=== PATIENT | female | born 1980 | race Caucasian/White ===

== ENCOUNTER 2016-12-24 12:15 | Emergency (ER) | payer SELFPAY ==
[~2016-12-24] VITALS: Ht 157.5 cm; Wt 99.8 kg
[~2016-12-24 12:15] MED LIST: PRED-220 PO
[2016-12-24] MEDS ORDERED: PRED50TA PO (12:38)
[2016-12-24] MEDS ORDERED: FAMO-63 PO (12:38)
--- NOTE | 2016-12-24 12:38 | PHYS DOC ---
Past History Past Medical History: Other Past Surgical History: Cholecystectomy Alcohol Use: None Drug Use: None Adult General Chief Complaint Chief Complaint: FACE PROBLEM HPI HPI Patient is a 36 year old female who presents with lip swelling. The patient states this morning she woke up and noted mild swelling of her lower lip. She denies any tongue swelling, difficulty breathing, vomiting, diarrhea. Denies rash or itching. She states the swelling has not worsened since she first noticed it. She took Benadryl at home without any significant change in her symptoms. Denies use of medications, no new ingestions of foods. Denies exposure to new soap/lotion/detergent. Reports history of previous similar reaction which she attributes to exposure to shampoo. She states she has previously been told that her blood pressure is high but she is not on medication. Today denies headache, vision changes, chest pain, shortness of breath, extremity numbness or weakness. Does not have a primary care physician. Review of Systems Review of Systems Constitutional: Denies fever or chills Eyes: Denies change in visual acuity HENT: Denies nasal congestion or sore throat , reports lip swelling Respiratory: Denies cough or shortness of breath Cardiovascular: Denies chest pain GI: Denies abdominal pain, nausea, vomiting, or diarrhea Musculoskeletal: Denies back pain or joint pain Integument: Denies rash or skin lesions Neurologic: Denies headache Allergies Allergies Allergies Coded Allergies Type Severity Reaction Last Updated Verified Penicillins Allergy Intermediate 09/06/16 Yes Tetanus Vaccines and Toxoid Allergy Intermediate Hives 03/01/15 No Physical Exam Physical Exam Constitutional: obese, no acute distress, non-toxic appearance. HENT: Normocephalic, atraumatic, bilateral external ears normal, oropharynx moist, nose normal. very mild swelling of the lower lip, no tongue or face swelling. Eyes: conjunctiva normal, no discharge. Neck: supple, no stridor. Cardiovascular: RRR, no murmurs, no edema. Lungs & Thorax: LCTAB, no wheezing, no respiratory distress. Abdomen: soft, nontender, nondistended. Skin: Warm, dry, no erythema, no rash. Back: No tenderness. Extremities: No tenderness, no edema. Neurologic: Alert and oriented X 3, no focal deficits noted. Psychologic: Affect normal, judgement normal, mood normal. Current Patient Data Vital Signs Vital Signs Date Time Temp Pulse Resp B/P (MAP) Pulse Ox O2 Delivery O2 Flow Rate FiO2 12/24/16 12:22 98.2 94 18 96 Room Air EKG EKG [] Radiology/Procedures Radiology/Procedures [] Course & Med Decision Making Course & Med Decision Making Pertinent Labs and Imaging studies reviewed. (See chart for details) Patient presents with presumed allergic reaction with very mild lip swelling. Reaction is localized, no progression since she woke up several hours ago, no distress, no intra-oral involvement. She already took Benadryl. Gave prednisone and Pepcid here. Symptoms extremely mild, did not administer epinephrine here. I did discuss somewhat extensively with the patient. If any progression such as worsening lip swelling or any tongue swelling or throat tightness, I would recommend use of epinephrine. Gave prescriptions for prednisone and Pepcid to continue for 4 days, recommend continue Benadryl every 6 hours while swelling persists. Offered EpiPen which she declines. Return to the emergency department for any worsening swelling, shortness of breath, any otherwise worsening condition. Provided clinic referral sheet and instructed her to follow-up with a primary care doctor in about one week for blood pressure recheck and possible allergy testing. She is discharged home in stable condition. [] Dragon Disclaimer Dragon Disclaimer This chart was dictated in whole or in part using Voice Recognition software in a busy, high-work load, and often noisy Emergency Department environment. It may contain unintended and wholly unrecognized errors or omissions. Departure Departure: Impression: Primary Impression: Allergic reaction Additional Impression: Hypertension Disposition: 01 HOME, SELF-CARE Condition: STABLE Referrals: PCP,NO (PCP) Patient Instructions: Allergies, Generic Additional Instructions: You were seen in the emergency department today for presumed allergic reaction. Please continue to take benadryl 25 mg every 6 hours for itching or swelling. Take pepcid & prednisone daily for 4 days. Follow up with primary care physician for elevated blood pressure & possible allergy testing. Come back for worsening lip swelling, severe tongue swelling, difficulty breathing, any otherwise worsening condition. Scripts Famotidine (PEPCID) 20 Mg Tablet 20 MG PO DAILY for 4 Days, #4 TAB Prov: KALEIGH BENNETT MD 12/24/16 Prednisone (PREDNISONE) 50 Mg Tablet 1 TAB PO DAILY, #4 TAB Prov: KALEIGH BENNETT MD 12/24/16 Problem Qualifiers KALEIGH BENNETT MD Dec 24, 2016 12:38
[2016-12-24 12:42] VITALS: BP 168/121
[2016-12-24] MEDS ORDERED: FAMOTIDINE 20 MG TABLET PO ONE (12:45)
[2016-12-24] MEDS ORDERED: predniSONE 10 MG TABLET PO ONE (12:45)
== END 2016-12-24 12:43 | disposition home or self-care (01) ==
LOC: ER 12:15
DX: T78.40XA Allergy, unspecified, initial encounter (principal); I10 Essential (primary) hypertension; Z88.0 Allergy status to penicillin; Z88.7 Allergy status to serum and vaccine; X58.XXXA Exposure to other specified factors, initial encounter
CPT/HCPCS: 99283; J7512

== ENCOUNTER 2017-09-08 21:01 | Emergency (ER) | payer SELFPAY ==
[~2017-09-08] VITALS: Ht 157.5 cm; Wt 99.8 kg
[~2017-09-08 21:01] MED LIST changes: +FAMO-63 PO; +PRED50TA PO
--- NOTE | 2017-09-08 21:08 | ED.ADGEN ---
Past History Past Medical History: Sinusitis, Other Past Surgical History: Cholecystectomy Alcohol Use: None Drug Use: None Adult General Chief Complaint Chief Complaint ".. I am having a headache..." HPI HPI Patient is a 36 year old female who presents with complaints of her typical migraine headache. Pt. take she's had previous workup with negative CT's. Patient usually manages headaches with [id number] Tylenol and ibuprofen. However tonight she has some associated associated nausea and photophobia which usually requires medications given in the emergency room. No history of trauma. No history of travel. No history immunosuppression. Does have a history of polycystic ovary disease. Patient denies any specific history of ill contacts. Patient is in the scalp area over forehead. There is no temporal tenderness. Other than photophobia no other patient complaints other than recent sinus congestion. . No history of fevers. [facility]. Pt does smoke marijuana. Review of Systems Review of Systems Constitutional: Denies fever or chills [] Eyes: Denies change in visual acuity, redness, or eye pain [] HENT: recent nasal congestion . Denies sore throat [] Respiratory: Denies cough or shortness of breath [] Cardiovascular: No additional information not addressed in HPI [] GI: Denies abdominal pain, vomiting, bloody stools or diarrhea []complaints of nausea. : Denies dysuria or hematuria [] Musculoskeletal: Denies back pain or joint pain [] Integument: Denies rash or skin lesions [] Neurologic: Has complaints of a migraine headache,. Patient denies focal weakness or sensory changes [] Endocrine: Denies polyuria or polydipsia [] All other systems were reviewed and found to be within normal limits, except as documented in this note. Family History Family History Mother has migraine headaches Current Medications Current Medications Current Medications Medications (Trade) Dose Ordered Sig/Nani Start Time Stop Time Status Last Admin Dose Admin Diphenhydramine HCl (Benadryl) 50 mg 1X ONCE 09/08/17 22:00 09/08/17 22:01 DC 09/08/17 21:51 50 MG Lactated Ringer's 1,000 ml @ 1,000 mls/hr Q1H 09/08/17 21:15 09/08/17 22:14 DC 09/08/17 21:46 1,000 MLS/HR Oxycodone/ Acetaminophen (Percocet 5/325) 2 tab 1X ONCE 09/09/17 00:30 09/09/17 00:31 DC Promethazine HCl (Phenergan Im) 25 mg 1X ONCE 09/08/17 22:00 09/08/17 22:01 DC 09/08/17 21:51 25 MG Sodium Chloride 50 ml @ As Directed STK-MED ONCE 09/08/17 21:47 09/08/17 21:48 DC Sumatriptan Succinate (Imitrex) 6 mg 1X ONCE 09/08/17 22:00 09/08/17 22:01 DC 09/08/17 21:51 6 MG Valproic Acid (Depacon) 500 mg STK-MED ONCE 09/08/17 21:47 09/08/17 21:48 DC Valproic Acid 500 mg/Sodium Chloride 55 ml @ 55 mls/hr 1X ONCE 09/08/17 22:00 09/08/17 22:59 DC 09/08/17 21:50 55 MLS/HR See nursing for home meds Allergies Allergies Allergies Coded Allergies Type Severity Reaction Last Updated Verified Penicillins Allergy Intermediate 09/06/16 Yes Tetanus Vaccines and Toxoid Allergy Intermediate Hives 03/01/15 No Physical Exam Physical Exam Constitutional: Moderately acute distress, non-toxic appearance. [] HENT: Normocephalic, atraumatic, bilateral external ears normal, oropharynx moist, no oral exudates, nose swollen turbinates and rhinorrhea ( mild). Eyes: PERRLA, EOMI, conjunctiva normal, no discharge. No appreciable field defects. Neck: Normal range of motion, no tenderness, supple, no stridor. [] Cardiovascular:Heart rate regular rhythm, no murmur [] Lungs & Thorax: Bilateral breath sounds clear to auscultation [] Abdomen: Bowel sounds normal, soft, no tenderness, no masses, no pulsatile masses. [] Old surgery scar. Skin: Warm, dry, no erythema, no rash. [] Back: No tenderness, no CVA tenderness. [] Extremities: No tenderness, no cyanosis, no clubbing, ROM intact, no edema. [] Neurologic: Alert and oriented X 3, normal motor function, normal sensory function, no focal deficits noted. []DTRs +2 patella and brachial. No drift. Architectural Technologist equal. Right-hand dominant. Air-conduction more than bone conduction and no lateralization. Distal vibratory intact. Psychologic: Affect anxious, judgement normal, mood normal. [] Current Patient Data Vital Signs Vital Signs Date Time Temp Pulse Resp B/P (MAP) Pulse Ox O2 Delivery O2 Flow Rate FiO2 09/09/17 00:34 77 24 134/94 (107) 96 Room Air 09/08/17 21:14 98.2 Lab Results Laboratory Tests Test 09/08/17 21:29 09/08/17 21:36 09/08/17 23:38 White Blood Count 11.5 x10^3/uL (4.0-11.0) H Red Blood Count 4.63 x10^6/uL (3.50-5.40) Hemoglobin 14.0 g/dL (12.0-15.5) Hematocrit 40.7 % (36.0-47.0) Mean Corpuscular Volume 88 fL (79-100) Mean Corpuscular Hemoglobin 30 pg (25-35) Mean Corpuscular Hemoglobin Concent 34 g/dL (31-37) Red Cell Distribution Width 13.6 % (11.5-14.5) Platelet Count 324 x10^3/uL (140-400) Neutrophils (%) (Auto) 72 % (31-73) Lymphocytes (%) (Auto) 20 % (24-48) L Monocytes (%) (Auto) 5 % (0-9) Eosinophils (%) (Auto) 2 % (0-3) Basophils (%) (Auto) 1 % (0-3) Neutrophils # (Auto) 8.3 x10^3uL (1.8-7.7) H Lymphocytes # (Auto) 2.3 x10^3/uL (1.0-4.8) Monocytes # (Auto) 0.6 x10^3/uL (0.0-1.1) Eosinophils # (Auto) 0.2 x10^3/uL (0.0-0.7) Basophils # (Auto) 0.1 x10^3/uL (0.0-0.2) Erythrocyte Sedimentation Rate 9 (0-25) Prothrombin Time 10.2 SEC (9.4-11.4) Prothrombin Time INR 1.0 (0.9-1.1) PTT 27 SEC (23-33) Sodium Level 138 mmol/L (136-145) Potassium Level 3.8 mmol/L (3.5-5.1) Chloride Level 101 mmol/L (98-107) Carbon Dioxide Level 28 mmol/L (21-32) Anion Gap 9 (6-14) Blood Urea Nitrogen 10 mg/dL (7-20) Creatinine 0.7 mg/dL (0.6-1.0) Estimated GFR (Cockcroft-Gault) 95.8 Glucose Level 106 mg/dL (70-99) H Calcium Level 8.9 mg/dL (8.5-10.1) Magnesium Level 2.0 mg/dL (1.8-2.4) Total Bilirubin 0.3 mg/dL (0.2-1.0) Direct Bilirubin 0.1 mg/dL (0.0-0.2) Aspartate Amino Transferase (AST) 17 U/L (15-37) Alanine Aminotransferase (ALT) 36 U/L (14-59) Alkaline Phosphatase 82 U/L (46-116) C-Reactive Protein 15.5 mg/L (0-3.3) H Total Protein 7.5 g/dL (6.4-8.2) Albumin 4.0 g/dL (3.4-5.0) Serum Test, Qualitative Negative (NEG) Urine Opiates Screen Pos (NEG) Urine Methadone Screen Neg (NEG) Urine Barbiturates Neg (NEG) Urine Phencyclidine Screen Neg (NEG) Urine Amphetamine/Methamphetamine Neg (NEG) Urine Benzodiazepines Screen Neg (NEG) Urine Cocaine Screen Neg (NEG) Urine Cannabinoids Screen Pos (NEG) Urine Ethyl Alcohol Neg (NEG) POC Urine HCG, Qualitative hcg negative (Negative) Urine Collection Type Unknown Urine Color [place] Urine Clarity Clear Urine pH 7.0 Urine Specific [place] 1.010 Urine Protein Neg (NEG-TRACE) Urine Glucose (UA) Neg mg/dL (NEG) Urine Ketones (Stick) Neg mg/dL (NEG) Urine Blood Large (NEG) Urine Nitrite Neg (NEG) Urine Bilirubin Neg (NEG) Urine Urobilinogen Dipstick 0.2 mg/dL (0.2 mg/dL) Urine Leukocyte Esterase Neg (NEG) Urine RBC 3-5 /HPF (0-2) Urine WBC Occ /HPF (0-4) Urine Squamous Epithelial Cells Few /LPF Urine Bacteria Few /HPF (0-FEW) Urine Mucus Slight /LPF EKG EKG [] Radiology/Procedures Radiology/Procedures CT deferred by patient[] Course & Med Decision Making Course & Med Decision Making Pertinent Labs and Imaging studies reviewed. (See chart for details). Patient take [id number] Tylenol and ibuprofen as needed for discomfort. Patient to take Imitrex 100 mg at the start of headache. Take no more than 200 mg in 24.hrs. Take Phenergan 25 mg with 50 mg Benadryl as needed for nausea. Patient Return if any concerns. Recommended pt follow with primary and consider neurology follow up. [] Final Impression Final Impression 1. Migraine[] 2. Viral Syndrome- URI Problems: Dragon Disclaimer Dragon Disclaimer This electronic medical record was generated, in whole or in part, using a voice recognition dictation system. MARY ANNE GUALLPA MD Sep 08, 2017 21:08
[2017-09-08] MEDS ORDERED: IV RINGERS SOLUTION,LACTATED 1,000 ML IV SCH (21:15)
[2017-09-08] MEDS ORDERED: VALPROATE SODIUM 500 MG/5 ML VIAL IV ONE (21:47)
[2017-09-08] MEDS ORDERED: IV NORMAL SALINE 50ML 50 ML ONE (21:47)
[2017-09-08 21:48] LABS: BASO # 0.1 x10^3/uL (0.0-0.2); BASO % 1 % (0-3); EOS # 0.2 x10^3/uL (0.0-0.7); EOS % 2 % (0-3); HEMATOCRIT 40.7 % (36.0-47.0); LYMPH # 2.3 x10^3/uL (1.0-4.8); LYMPH % 20 % (24-48); MEAN CORPUSCULAR HEMOGLOBIN 30 pg (25-35); MEAN CORPUSCULAR HGB CONC 34 g/dL (31-37); MEAN CORPUSCULAR VOLUME 88 fL (79-100); MONO # 0.6 x10^3/uL (0.0-1.1); MONO % 5 % (0-9); NEUT # 8.3 x10^3uL (1.8-7.7); NEUT % 72 % (31-73); PLATELET COUNT 324 x10^3/uL (140-400); RED BLOOD COUNT 4.63 x10^6/uL (3.50-5.40); RED CELL DISTRIBUTION WIDTH 13.6 % (11.5-14.5); WHITE BLOOD COUNT 11.5 x10^3/uL (4.0-11.0)
[2017-09-08 21:58] LABS: C REACTIVE PROTEIN 15.5 mg/L (0-3.3); CALCIUM 8.9 mg/dL (8.5-10.1); CREATININE 0.7 mg/dL (0.6-1.0); DIRECT BILIRUBIN 0.1 mg/dL (0.0-0.2); GFR 95.8; POTASSIUM 3.8 mmol/L (3.5-5.1); TOTAL BILIRUBIN 0.3 mg/dL (0.2-1.0); TOTAL PROTEIN 7.5 g/dL (6.4-8.2)
[2017-09-08 21:59] LABS: AMPHETAMINE/METHAMPHETAMINE NEG (NEG); BARBITURATES NEG (NEG); BENZODIAZEPINES NEG (NEG); CANNABINOIDS POS (NEG); COCAINE NEG (NEG); METHADONE NEG (NEG); OPIATES POS (NEG); PHENCYCLIDINE NEG (NEG)
[2017-09-08] MEDS ORDERED: PROMETHAZINE IM 25 MG/ML VIAL IM ONE (22:00)
[2017-09-08] MEDS ORDERED: diphenhydrAMINE 50 MG/ML VIAL IV ONE (22:00)
[2017-09-08] MEDS ORDERED: SUMAtriptan. 6 MG/0.5 ML VIAL SQ ONE (22:00)
[2017-09-08] MEDS ORDERED: VALPROATE SODIUM 500 MG in IV NORMAL SALINE 50ML 50 ML IV ONE (22:00)
[2017-09-08 22:04] LABS: PREG TEST PT QUAL NEGATIVE (NEG)
[2017-09-08 23:03] LABS: SEDIMENTATION RATE 9 (0-25)
[2017-09-09 00:01] LABS: BACTERIA,URINE FEW /HPF (0-FEW); BILIRUBIN,URINE NEG (NEG); CLARITY,URINE CLEAR; COLOR,URINE PINK; GLUCOSE,URINE NEG (NEG); NITRITE,URINE NEG (NEG); SQUAMOUS EPITHELIAL CELL,UR FEW /LPF; UROBILINOGEN,URINE 0.2 mg/dL (0.2 mg/dL); WBC,URINE OCC /HPF (0-4)
[2017-09-09] MEDS ORDERED: PROM25VI5 IJ (00:08)
[2017-09-09] MEDS ORDERED: SUMA100T3 PO (00:08)
[2017-09-09] MEDS ORDERED: oxyCODONE/APAP 5/325 1 TAB TABLET PO ONE (00:30)
[2017-09-09 00:34] VITALS: BP 134/94
== END 2017-09-09 00:34 | disposition home or self-care (01) ==
LOC: ER 21:01
DX: G43.909 Migraine, unspecified, not intractable, without status migrainosus (principal); J06.9 Acute upper respiratory infection, unspecified; B97.89 Other viral agents as the cause of diseases classified elsewhere; F12.90 Cannabis use, unspecified, uncomplicated; E28.2 Polycystic ovarian syndrome; Z88.7 Allergy status to serum and vaccine; Z88.0 Allergy status to penicillin
CPT/HCPCS: 36415; 80048; 80076; 80307; 81001; 81025; 83735; 84703; 85025; 85610; 85651; 85730; 86140; 96365; 96372; 96375; 99284; J1200; J2550; J3030; J3490; J7120; G0479